=== PATIENT | female | born 1965 | race Two or more races ===

== ENCOUNTER 2017-04-12 13:31 | Emergency (ER) | payer MEDICAID ==
[~2017-04-12] VITALS: Ht 160 cm; Wt 116.0 kg
[2017-04-12] MEDS ORDERED: KETOROLAC 60MG/2ML VIAL IM STA (18:27)
[2017-04-12] MEDS ORDERED: SODIUM CHLORIDE 0.9% 1,000 ML IV ONE (19:30)
[2017-04-12 21:30] VITALS: BP 131/75
== END 2017-04-12 21:30 | disposition home or self-care (01) ==
LOC: ER 17:04
DX: M25.562 Pain in left knee (principal); J45.909 Unspecified asthma, uncomplicated; I10 Essential (primary) hypertension; E78.00 Pure hypercholesterolemia, unspecified; F12.10 Cannabis abuse, uncomplicated; Z88.0 Allergy status to penicillin; Z91.013 Allergy to seafood
CPT/HCPCS: 73560; 81025; 96372; 99284; J1885; Z7610; J7030